=== PATIENT | male | born 1980 | race Caucasian/White ===

== ENCOUNTER 2021-07-28 07:19 | Emergency (ER) | payer OTHER ==
[2021-07-28 08:43] LABS: RED BLOOD COUNT 5.01 M/UL (4.20-5.50); WHITE BLOOD COUNT 10.1 K/UL (4.5-11.0)
[2021-07-28 08:54] LABS: BUN/CREATININE RATIO 10 (0-10)
== END 2021-07-28 10:09 | disposition left against medical advice (07) ==
LOC: ER1 07:19
PROVIDERS: Nurse Practitioner
DX: R10.9 Unspecified abdominal pain (principal); F17.210 Nicotine dependence, cigarettes, uncomplicated; R10.811 Right upper quadrant abdominal tenderness; R10.813 Right lower quadrant abdominal tenderness; R10.817 Generalized abdominal tenderness; R11.2 Nausea with vomiting, unspecified
CPT/HCPCS: 71045; 80053; 82150; 82550; 82553; 83690; 83874; 84484; 85025; 85652; 86140; 93005; 96374; 96375; 99283; J2270; J2405; J7030; Q9967

== ENCOUNTER 2021-08-01 08:29 | Inpatient (IN) | payer OTHER ==
[~2021-08-01] VITALS: Ht 177.8 cm; Wt 81.6 kg
[2021-08-01 09:27] LABS: HEMOGLOBIN 15.1 gm/dl (14.0-17.5); RED BLOOD COUNT 5.19 M/UL (4.20-5.50); WHITE BLOOD COUNT 9.7 K/UL (4.5-11.0)
[2021-08-01 09:51] LABS: BUN/CREATININE RATIO 15 (0-10)
--- NOTE | 2021-08-01 16:59 | NUR ---
PATIENT STATES THAT HE IS IN SEVERE PAIN AT THIS TIME. MADE AWARE AND HE STATES THAT HE WILL ORDER PAIN MEDICATION FOR THE PATIENT AT THIS TIME.
--- NOTE | 2021-08-01 19:30 | NUR ---
at 1910 Dr. Lucio came to speak to the patient about the need for the NG tube to be reinserted. While I was in the room the patient did not object. Dr. Lucio ask me to put in the order for the NG tube and also spoke with me about medication for anxiety. The patient has a order for Ativan 0.5mg Q6H for anxiety with the NG tube. After putting the order in I printed education for Kelly and I was going to assist her in placement. I went back and let him know the order was put in for the NG tube and I would be coming back to get that put in. The patient was very rude and said I'm not having the tube up my nose, I told them in the ER i wouldn't have it again. I said I was sorry, Dr. Lucio was under the impression that he had agreed to the NG tube. He again said no, I'm not having the tube up my nose, I will just go home. I said ok, let me speak with the DR. I then called Dr. Lucio and explanined above. Dr. Lucio said OK, there is nothing for me to do without the stomach being empty. I then called Dr. Grzegorz Johnson, since he was the admitting. Dr. Johnson came and spoke with the patient and then came and spoke with me. Dr. Johnson said, the patient refused the NG tube. The patient can stay, although not much we can do for him without and NG tube. If he stays he may agree later to allow the NG. If he insist he can leave AMA. I will spoke with the patient and explained that he could stay the night and we could try to manage the pain and he may have time to think about the NG tube. The patient has agreed to stay until tomorrow for now. He said he was going out to smoke before I hook his IV back up.
--- NOTE | 2021-08-01 20:09 | NUR ---
There is orders to get consent for EGD and schedule fro 08/02/21, and insert the NG tube to low wall suction. I have already informed Dr. Lucio and Dr. Johnson the pt has refused the NG tube at this time. I spoke with the [employer] house cook and let her know of the situation. I will keep the patient NPO and manage pain tonight.
[2021-08-02 07:39] LABS: HEMOGLOBIN 14.4 gm/dl (14.0-17.5); RED BLOOD COUNT 4.91 M/UL (4.20-5.50); WHITE BLOOD COUNT 10.9 K/UL (4.5-11.0)
[2021-08-02 08:41] LABS: BUN/CREATININE RATIO 12 (0-10)
== END 2021-08-02 13:09 | disposition home or self-care (01) | DRG 395 ==
LOC: ER1 08:29 → CDU 12:27 → M/S 12:27
PROVIDERS: Emergency Medicine; Internal Medicine Gastroenterology; Physician Assistant; ADMIT Internal Medicine
PROC: 0DC68ZZ Extirpation of Matter from Stomach, Via Natural or Artificial Opening Endoscopic (ICD-10-PCS; principal; 2021-08-02 10:00)
DX: T18.2XXA Foreign body in stomach, initial encounter (principal); K31.89 Other diseases of stomach and duodenum; F19.10 Other psychoactive substance abuse, uncomplicated; Z20.822 Contact with and (suspected) exposure to COVID-19; F17.210 Nicotine dependence, cigarettes, uncomplicated; X58.XXXA Exposure to other specified factors, initial encounter; Z82.0 Family history of epilepsy and other diseases of the nervous system; Z82.49 Family history of ischemic heart disease and other diseases of the circulatory system
CPT/HCPCS: 80053; 81001; 83690; 84439; 84443; 85025; 96374; 96375; 96376; 99284; C9113; J0330; J1170; J2405; J2704; J7030; J7040; U0002